=== PATIENT | male | born 1965 | race Caucasian/White ===

== ENCOUNTER 2017-11-18 15:50 | Observation (INO) | payer OTHER ==
[2017-11-18] MEDS ORDERED: methylPREDNISolone 125 MG* 2 ML VIAL IV ONE (17:27)
[2017-11-18] MEDS ORDERED: Aspirin 81 mg CHEW TAB* 81 MG TAB.CHEW PO ONE (17:27)
[2017-11-18] MEDS ORDERED: Nitroglycerin TAB 0.4 MG* 0.4 MG TAB SL ONE (17:27)
[2017-11-18] MEDS ORDERED: Albuterol/Ipratropium NEB.SOL* Albuterol 2.5 MG/Ipratropium 0.5 MG 3 ML INH ONE ×2 (17:27→18:16)
[2017-11-18 17:53] LABS: ABS Basophils 0 10^3/ul (0-0.2); ABS Eosinophils 1.1 10^3/ul (0-0.6); ABS Lymphocytes 1.9 10^3/ul (1.0-4.8); ABS Monocytes 0.5 10^3/ul (0-0.8); ABS Neutrophils 3.8 10^3/ul (1.5-7.7); ABS Nucleated RBC 0 10^3/ul; Eosinophil % 14.6 % (0-6); Hematocrit 41 % (42-52); Hemoglobin 14.1 g/dl (14.0-18.0); Lymphocyte % 25.6 % (25-47); Mean Corpuscular HGB Conc 35 g/dl (31-36); Mean Corpuscular Hemoglobin 34 pg (27-31); Mean Corpuscular Volume 100 fL (80-94); Mean Platelet Volume 8.4 um3 (7.4-10.4); Nucleated Red Blood Cells % 0.1; Platelet Count 192 10^3/ul (150-450); Red Blood Count 4.08 10^6/ul (4.0-5.4); Red Cell Distribution Width 14 % (10.5-15); White Blood Count 7.3 10^3/ul (3.5-10.8)
--- NOTE | 2017-11-18 18:05 | RAD ---
INDICATION: Intermittent chest pressure for a couple of days. Tingling in the arms. COMPARISON: December 02, 2015 TECHNIQUE: Dual energy PA and routine lateral views of the chest were obtained. REPORT: Clear lungs and pleural spaces. Negative for pneumothorax. The heart, pulmonary vasculature, and mediastinal contours are unremarkable. Unremarkable osseous structures and soft tissue contours. IMPRESSION: No evidence for acute intrathoracic disease.
[2017-11-18 18:11] LABS: EGFR Non-African American 80.3 (>60)
[2017-11-18] MEDS ORDERED: Metoprolol Tartrate IV* 1 MG/ML 5 ML VIAL IV ONE (18:59)
[2017-11-18] MEDS ORDERED: hydrALAZINE IV* 20 MG/ML VIAL IV SLOW PU ONE (19:17)
[2017-11-18] MEDS ORDERED: Acetaminophen TAB* 325 MG PO PRN (19:49)
[2017-11-18] MEDS ORDERED: hydrALAZINE IV* 20 MG/ML VIAL IV SLOW PU PRN ×2 (19:50→20:16)
[2017-11-18] MEDS ORDERED: LORazepam TAB(*) 1 MG PO SCH (20:00)
[2017-11-18] MEDS ORDERED: Azithromycin IV(*) 500 MG in NS 0.9% 250 ML* 250 ML IVPB SCH (20:00)
[2017-11-18] MEDS ORDERED: LORazepam TAB(*) 1 MG PO ONE (20:16)
[2017-11-18] MEDS ORDERED: amLODIPine TAB* 5 MG PO ONE (20:16)
[2017-11-18] MEDS: Mometasone/Formoter 200/5 MDI INH SCH (21:55)
[2017-11-19] MEDS: Albuterol/Ipratropium NEB.SOL* Albuterol 2.5 MG/Ipratropium 0.5 MG 3 ML INH SCH ×5 (00:32→14:56)
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
[2017-11-19 05:53] LABS: ABS Basophils 0 10^3/ul (0-0.2); ABS Eosinophils 0 10^3/ul (0-0.6); ABS Lymphocytes 0.5 10^3/ul (1.0-4.8); ABS Monocytes 0 10^3/ul (0-0.8); ABS Neutrophils 5.9 10^3/ul (1.5-7.7); ABS Nucleated RBC 0 10^3/ul; Eosinophil % 0 % (0-6); Hematocrit 43 % (42-52); Hemoglobin 14.8 g/dl (14.0-18.0); Lymphocyte % 8.1 % (25-47); Mean Corpuscular HGB Conc 34 g/dl (31-36); Mean Corpuscular Hemoglobin 35 pg (27-31); Mean Corpuscular Volume 101 fL (80-94); Mean Platelet Volume 8.5 um3 (7.4-10.4); Nucleated Red Blood Cells % 0; Platelet Count 198 10^3/ul (150-450); Red Blood Count 4.29 10^6/ul (4.0-5.4); Red Cell Distribution Width 14 % (10.5-15); White Blood Count 6.5 10^3/ul (3.5-10.8)
[2017-11-19] MEDS ORDERED: methylPREDNISolone SOD 40 MG* 1 ML VIAL IV SCH (06:00)
[2017-11-19 06:12] LABS: EGFR Non-African American 81.3 (>60)
[2017-11-19] MEDS: Mometasone/Formoter 200/5 MDI INH SCH (07:27)
--- NOTE | 2017-11-19 07:41 | ED ---
Neil Antoine Gabriel scribed for Marvin Rivero MD on 11/18/17 at 1850 . HPI Chest Pain - HPI Summary HPI Summary: This patient is a 51 year old M presenting to [facility] with a chief complaint of intermittent heavy sub sternal CP that began 3 days ago and radiates into his left scapula. He also c/o wheezing and numbness/tingling into the left hand and foot that began 3 weeks ago. He also has had a baseline cough for weeks. The patient has not seen a doctor in many years and is not on medication. The pain was relieved with nitro. - History of Current Complaint Chief Complaint: EDChestPainROMI Time Seen by Provider: 11/18/17 17:10 Hx Obtained From: Patient Onset/Duration: Still Present Timing: Constant Initial Severity: Mild Current Severity: Mild Pain Intensity: 4 Pain Scale Used: 0-10 Numeric Chest Pain Radiates: Yes Chest Pain Radiates To:: Back - Allergy/Home Medications Allergies/Adverse Reactions: Allergies Allergy/AdvReac Type Severity Reaction Status Date / Time Hay fever Allergy Unknown Uncoded 11/18/17 16:08 Reaction Details PMH/Surg Hx/FS Hx/Imm Hx Endocrine/Hematology History: Denies: Hx Diabetes Cardiovascular History: Reports: Hx Angina Denies: Hx Congestive Heart Failure, Hx Hypertension Respiratory History: Reports: Hx Chronic Obstructive Pulmonary Disease (COPD) Sensory History: Reports: Hx Contacts or Glasses - reading glasses Opthamlomology History: Reports: Hx Contacts or Glasses - reading glasses - Surgical History Surgery Procedure, Year, and Place: RT. KNEE MENISCAL TEAR, FACIAL BONE FX. RECON. Infectious Disease History: No Infectious Disease History: Denies: Traveled Outside the [place] in Last 30 Days - Social History Alcohol Use: Daily Substance Use Type: Reports: None Smoking Status (MU): Former Smoker Review of Systems Negative: Fever, Chills Negative: Erythema Negative: Sore Throat Positive: Chest Pain Positive: Cough, Other - wheeze . Negative: Shortness Of Breath Negative: Abdominal Pain, Vomiting, Nausea Negative: dysuria, hematuria Negative: Myalgia, Edema Negative: Rash Neurological: Negative - dizziness Positive: Numbness All Other Systems Reviewed And Are Negative: Yes Physical Exam - Summary Physical Exam Summary: Constitutional: Well-developed, Well-nourished, Alert. (-) Distressed Skin: Warm, Dry HENT: Normocephalic; Atraumatic Eyes: Conjunctiva normal Neck: Musculoskeletal ROM normal neck. (-) JVD, (-) Stridor, (-) Tracheal deviation Cardio: Rhythm regular, rate normal, Heart sounds normal; Intact distal pulses; The pedal pulses are 2+ and symmetric. Radial pulses are 2+ and symmetric. (-) Murmur Pulmonary/Chest wall: Effort normal. (-) Respiratory distress, (+) Wheezes, (-) Rales Abd: Soft, (-) Tenderness, (-) Distension, (-) Guarding, (-) Rebound Musculoskeletal: (-) Edema Lymph: (-) Cervical adenopathy Neuro: Alert, Oriented x3 Psych: Mood and affect Normal Triage Information Reviewed: Yes Vital Signs On Initial Exam: Initial Vitals Temp Pulse Resp BP Pulse Ox 98.7 F 67 20 179/105 100 11/18/17 16:04 11/18/17 16:04 11/18/17 16:04 11/18/17 16:04 11/18/17 16:04 Vital Signs Reviewed: Yes Diagnostics - Vital Signs Vital Signs Temp Pulse Resp BP Pulse Ox 11/18/17 16:04 98.7 F 67 20 179/105 100 - Laboratory Lab Results: Lab Results 11/18/17 11/18/17 11/18/17 Range/Units 17:37 17:37 17:37 WBC (3.5-10.8) 10^3/ul RBC (4.0-5.4) 10^6/ul Hgb (14.0-18.0) g/dl Hct (42-52) % MCV (80-94) fL MCH (27-31) pg MCHC (31-36) g/dl RDW (10.5-15) % Plt Count (150-450) 10^3/ul MPV (7.4-10.4) um3 Neut % (Auto) (38-83) % Lymph % (Auto) (25-47) % Spalding % (Auto) (0-7) % Eos % (Auto) (0-6) % Baso % (Auto) (0-2) % Absolute Neuts (auto) (1.5-7.7) 10^3/ul Absolute Lymphs (auto) (1.0-4.8) 10^3/ul Absolute Monos (auto) (0-0.8) 10^3/ul Absolute Eos (auto) (0-0.6) 10^3/ul Absolute Basos (auto) (0-0.2) 10^3/ul Absolute Nucleated RBC 10^3/ul Nucleated RBC % D-Dimer, Quantitative < 200 (Less Than 230) ng/mL Sodium 138 L (139-145) mmol/L Potassium 3.7 (3.5-5.0) mmol/L Chloride 104 (101-111) mmol/L Carbon Dioxide 25 (22-32) mmol/L Anion Gap 9 (2-11) mmol/L BUN 11 (6-24) mg/dL Creatinine 0.98 (0.67-1.17) mg/dL Est GFR ( Amer) 103.3 (>60) Est GFR (Non-Af Amer) 80.3 (>60) BUN/Creatinine Ratio 11.2 (8-20) Glucose 98 (70-100) mg/dL Lactic Acid 0.9 (0.5-2.0) mmol/L Calcium 9.7 (8.6-10.3) mg/dL Total Bilirubin 0.70 (0.2-1.0) mg/dL AST 26 (13-39) U/L ALT 28 (7-52) U/L Alkaline Phosphatase 56 (34-104) U/L Troponin I 0.00 (<0.04) ng/mL Total Protein 7.5 (6.4-8.9) g/dL Albumin 4.4 (3.2-5.2) g/dL Globulin 3.1 (2-4) g/dL Albumin/Globulin Ratio 1.4 (1-3) /04/28 Range/Units 17:40 WBC 7.3 (3.5-10.8) 10^3/ul RBC 4.08 (4.0-5.4) 10^6/ul Hgb 14.1 (14.0-18.0) g/dl Hct 41 L (42-52) % MCV 100 H (80-94) fL MCH 34 H (27-31) pg MCHC 35 (31-36) g/dl RDW 14 (10.5-15) % Plt Count 192 (150-450) 10^3/ul MPV 8.4 (7.4-10.4) um3 Neut % (Auto) 52.1 (38-83) % Lymph % (Auto) 25.6 (25-47) % Spalding % (Auto) 7.1 H (0-7) % Eos % (Auto) 14.6 H (0-6) % Baso % (Auto) 0.6 (0-2) % Absolute Neuts (auto) 3.8 (1.5-7.7) 10^3/ul Absolute Lymphs (auto) 1.9 (1.0-4.8) 10^3/ul Absolute Monos (auto) 0.5 (0-0.8) 10^3/ul Absolute Eos (auto) 1.1 H (0-0.6) 10^3/ul Absolute Basos (auto) 0 (0-0.2) 10^3/ul Absolute Nucleated RBC 0 10^3/ul Nucleated RBC % 0.1 D-Dimer, Quantitative (Less Than 230) ng/mL Sodium (139-145) mmol/L Potassium (3.5-5.0) mmol/L Chloride (101-111) mmol/L Carbon Dioxide (22-32) mmol/L Anion Gap (2-11) mmol/L BUN (6-24) mg/dL Creatinine (0.67-1.17) mg/dL Est GFR ( Amer) (>60) Est GFR (Non-Af Amer) (>60) BUN/Creatinine Ratio (8-20) Glucose (70-100) mg/dL Lactic Acid (0.5-2.0) mmol/L Calcium (8.6-10.3) mg/dL Total Bilirubin (0.2-1.0) mg/dL AST (13-39) U/L ALT (7-52) U/L Alkaline Phosphatase (34-104) U/L Troponin I (<0.04) ng/mL Total Protein (6.4-8.9) g/dL Albumin (3.2-5.2) g/dL Globulin (2-4) g/dL Albumin/Globulin Ratio (1-3) Result Diagrams: 11/18/17 17:40 11/18/17 17:37 Lab Statement: Any lab studies that have been ordered have been reviewed, and results considered in the medical decision making process. Chest Pain Course/Dx - Course Assessment/Plan: This patient is a 51 year old M presenting to [facility] with a chief complaint of intermittent heavy sub sternal CP that began 3 days ago and radiates into his left scapula. He also c/o wheezing and numbness/tingling into the left hand and foot that began 3 weeks ago. He also has had a baseline cough for weeks. The patient has not seen a doctor in many years and is not on medication. The pain was relieved with nitro. Patient has fmhx of CAD and is hypertensive in the ED. He will be admitted to r/o acute coronary syndrome and COPD. Dx unspecified chest pain - Diagnoses Provider Diagnoses: Chest pain, unspecified - Provider Notifications Discussed Care Of Patient With: Selena Murillo Time Discussed With Above Provider: 18:52 Instructed by Provider To: Admit As Inpatient Discharge - Sign-Out/Discharge Documenting (check all that apply): Discharge/Admit/Transfer - Discharge Plan Condition: Fair Disposition: ADMITTED TO [facility] Referrals: Cecil Vital MD [Primary Care Provider] - The documentation as recorded by the Neil cao Gabriel accurately reflects the service I personally performed and the decisions made by , Marvin Rivero MD.
[2017-11-19] MEDS ORDERED: Aspirin 81 mg CHEW TAB* 81 MG TAB.CHEW PO SCH (09:00)
[2017-11-19] MEDS ORDERED: Folic Acid TAB* 1 MG PO SCH (09:00)
[2017-11-19] MEDS ORDERED: Thiamine TAB* 100 MG TAB PO SCH (09:00)
[2017-11-19] MEDS ORDERED: Multivitamins/Minerals TAB PO SCH (09:00)
[2017-11-19] MEDS ORDERED: amLODIPine TAB* 5 MG PO SCH (09:00)
[2017-11-19] MEDS ORDERED: Regadenoson* 0.4 MG/5 ML SYRINGE ONE (11:00)
[2017-11-19] MEDS ORDERED: Aminophylline IV* 25 MG/ML 10 ML VIAL ONE (11:12)
--- NOTE | 2017-11-19 14:17 | RAD ---
Edited for charges. Indication: Chest pain. Myocardial perfusion scan was performed utilizing 1 day protocol. Rest myocardial perfusion was performed after intravenous injection of 10.99 mCi of technetium 99 and tetrofosmin. Treadmill stress study was performed and the maximum heart rate achieved was 112% of the maximum predicted value. The left ventricle appears normal in size. There is homogeneous distribution of the radiotracer throughout the left ventricle. There is no significant fixed or reversible perfusion defect noted. Ejection fraction at stress is 83%. Evaluation of wall motion demonstrates no evidence of focal wall motion abnormalities. IMPRESSION: No fixed or reversible perfusion defects are noted. Normal ejection fraction. ASSESSMENT: Low risk Based on imaging criteria from ACC/AHA 2002 Guideline Update for the Management of Patients With Chronic Stable Angina Table 23. Noninvasive Risk Stratification. MTDD
[2017-11-19 16:01] VITALS: BP 121/78
--- NOTE | 2017-11-20 12:04 | DS ---
CC: Dr. Vital; Dr. Ann * DISCHARGE SUMMARY: DATE OF ADMISSION: 11/18/17 DATE OF DISCHARGE: 11/19/17 PRIMARY CARE PROVIDER: Dr. Vital. DISCHARGE DIAGNOSES: 1. Asthma exacerbation. 2. Chest pain with low probability cardiac stress test documented on 11/19/17. SECONDARY DIAGNOSES: 1. Hypertension. 2. Hyperlipidemia. 3. History of COPD. 4. History of tobacco abuse. 5. History of alcohol abuse. MEDICATIONS AT DISCHARGE: Include, 1. Albuterol inhaler 2 puffs every 4 hours p.r.n. 2. Claritin 10 mg daily. 3. Advair 250/50 one inhalation b.i.d. 4. Norvasc 5 mg daily. 5. Prednisone 50 mg daily for five days in total then stop. LABORATORY DATA: Studies performed during the hospital stay include: On , white blood cell count of 6.7, hemoglobin of 14.8, hematocrit of 43, and platelets of 188. D-dimer below 200. Sodium was 137, potassium 3.9, chloride 104, carbon dioxide 23, BUN 14, creatinine 0.97. His troponin was 0 throughout his hospital stay. Triglycerides of 52, cholesterol total of 236, LDL 152 and HDL 73. Portable chest x-ray on admission, impression: "No evidence of acute intrathoracic disease." The patient's nuclear medicine, cardiac stress tests documented on 11/19/17 showed low risk. There was no fixed or reversible perfusion defect noted. Normal ejection fraction with stress at 83%. Please note that on treadmill at the end of his exercise on treadmill, patient was having significant wheezes. HOSPITALIZATION COURSE: Gui Davis is a 51-year-old male with history of COPD and asthma. The patient stated for the last 11 years ever since he started smoking, he had been having exercise-induced wheezing. He stopped his Advair due to the cost of the medication. He had been using albuterol on a p.r.n. basis and he uses it several times a day. 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 The patient presented with wheezing and chest pain. For details of the presentation, please see history and physical at admission. Shortly, the patient was placed on overnight observation, treated for COPD exacerbation with Solu-Medrol and nebulizer treatments. By the time of discharge, he still continues to have wheezes bilaterally on exam but he was definitely more comfortable. His cardiac stress test showed increase in wheezes post treadmill but nuclear portion of the stress test showed no evidence of ischemia. Unfortunately despite trying to call patient's insurance to figure out which long acting beta agonist and steroid combination inhaler the patient's insurance covers, it appears that patient has a $1000 deductible and he will have to pay full simmons for his long acting inhalers until he meets the deductible. At this point, I did prescribe patient Advair at discharge. It is possible that patient's primary care provider may have some samples to give for the patient. The patient is recommended to follow up with Dr. Ann, the rail car loader for further recommendations and investigations regarding his what appears to be exercise induced asthma. At discharge, the patient is recommended to follow up with Dr. Vital, his primary care provider in 4 to 7 days. I also gave patient Dr. Ann's office phone number but I believe he may need a referral from Dr. Vital before he can see a rail car loader. PHYSICAL EXAMINATION: At the time of discharge, blood pressure 134/78, heart rate of 105 and regular, respiratory rate 16, oxygen saturation 96% on room air , temperature 97.6. General: This is a pleasant 51-year-old male who is in no acute distress. Alert, awake, and oriented x3. HEENT: Head is atraumatic, normocephalic. Eyes: Pupils are equal, reactive to light and accommodation. Oropharynx is clear. Mucosa moist. Neck: Supple. No JVD. No bruits bilaterally. Cardiovascular: Regular rate and rhythm. No murmur. Respiratory : High pitched wheezes bilaterally in bilateral mid lungs on evaluation. Abdomen: Soft, nontender. Bowel sounds are present in all 4 quadrants. Extremities: There is no edema. Pulses are +2 bilaterally. There is no clubbing or cyanosis. Neuro Evaluation: Speech clear. Cranial nerves II through XII grossly intact. Motor strength is 5/5 bilaterally. At discharge, the patient recommended to adhere to low-cholesterol diet. Please note that this is a short summary of the patient's hospitalization. Please refer to further medical records for details. [id number]/CPS #: [id number] [facility]
== END 2017-11-19 18:00 | disposition home or self-care (01) ==
LOC: ED 15:50 → MEDTELE 18:27
PROVIDERS: ADMIT Internal Medicine; ATTEND Internal Medicine
DX: J45.901 Unspecified asthma with (acute) exacerbation (principal); R07.9 Chest pain, unspecified; I10 Essential (primary) hypertension; E78.5 Hyperlipidemia, unspecified; Z87.891 Personal history of nicotine dependence; F10.21 Alcohol dependence, in remission; Z87.09 Personal history of other diseases of the respiratory system
CPT/HCPCS: 36415; 71046; 78452; 80048; 80053; 80061; 80320; 83605; 83735; 84484; 85025; 85379; 93005; 93017; 94640; 99284; A9270-GY; A9502; G0378; G0480; J0280; J0360; J0456; J2785; J2920; J2930

== ENCOUNTER 2019-08-21 09:16 | Emergency (ER) | payer OTHER ==
[2019-08-21] MEDS ORDERED: Labetalol IV* 5 MG/ML 20 ML VIAL IV PUSH ONE (10:36)
--- NOTE | 2019-08-21 10:37 | ED ---
Neurological HPI - HPI Summary HPI Summary: This pt is a 53 y/o male presenting to [facility] c/o left arm tingling x1 month. Pt reports tingling starts at the tip of his left fingers and radiates up to his upper left arm. Additionally reports left sided neck stiffness. Denies neck pain. Denies slurred speech, difficulty concentrating, unsteady gait, weakness in legs. Denies hx of strokes or TIAs. Pt reports he has been having a productive cough as well. He states he has chest pain mostly when he coughs. Denies runny nose or fevers. Pt reports his PCP placed him on 5 mg of Amlodipine and has been taking this new medication for 3 weeks now. PMHx: HTN, COPD. Denies tobacco and drug use. Pt admits to drinking alcohol, 6 pack every day, and states he gets "buzzed" but not drunk. - History of Current Complaint Chief Complaint: EDGeneral Stated Complaint: LEFT ARM NUMBNESS/CONGESTED PER PT Time Seen by Provider: 08/21/19 10:29 Hx Obtained From: Patient Onset/Duration: Started weeks ago, Still Present Timing: Constant Current Severity: Moderate Neurological Deficit Location: LUE Pain Intensity: 0 Pain Scale Used: 0-10 Numeric Character: Numbness/Tingling Aggravating: Nothing Alleviating: Nothing Associated Signs and Symptoms: Positive: Chest Pain. Negative: Unsteady Gait, Weakness, Impaired Speech, Fever - Additional Pertinent History Primary Care Physician: HALIMA - Allergy/Home Medications Allergies/Adverse Reactions: Allergies Allergy/AdvReac Type Severity Reaction Status Date / Time Hay fever Allergy Unknown Uncoded 11/18/17 16:08 Reaction Details Home Medications: Home Medications Albuterol HFA INHALER* [Ventolin HFA Inhaler*] 2 puff INH Q4H PRN 08/21/19 [ History Confirmed 08/21/19] Fluticasone Propion/Salmeterol [Wixela 250-50 Inhub] 1 each INH BID 08/21/19 [ History Confirmed 08/21/19] PMH/Surg Hx/FS Hx/Imm Hx Endocrine/Hematology History: Denies: Hx Diabetes Cardiovascular History: Reports: Hx Angina, Hx Hypercholesterolemia Denies: Hx Congestive Heart Failure, Hx Coronary Artery Disease, Hx Hypertension, Hx Myocardial Infarction Respiratory History: Reports: Hx Chronic Obstructive Pulmonary Disease (COPD) Denies: Hx Asthma Sensory History: Reports: Hx Contacts or Glasses - reading glasses Denies: Hx Hearing Aid Opthamlomology History: Reports: Hx Contacts or Glasses - reading glasses - Surgical History Surgery Procedure, Year, and Place: RT. KNEE MENISCAL TEAR, FACIAL BONE FX. RECON. Hx Anesthesia Reactions: No Infectious Disease History: No Infectious Disease History: Denies: Traveled Outside the [place] in Last 30 Days - Family History Known Family History: Positive: Cardiac Disease - grandmother with CAD Family History: Father with cirrhosis of the liver secondary to alcoholism. Sister with lung CA. - Social History Alcohol Use: Daily Alcohol Amount: 6 pack Substance Use Type: Reports: None Smoking Status (MU): Former Smoker Review of Systems Negative: Fever Negative: Nasal Discharge Positive: Chest Pain Positive: Cough Musculoskeletal: Other - POSITIVE: left neck stiffness Negative: Other - NEGATIVE: neck pain Neurological/Mental Status: Other - NEGATIVE: difficulty concentrating Positive: Paresthesia. Negative: Weakness, Slurred Speech All Other Systems Reviewed And Are Negative: Yes Physical Exam - Summary Physical Exam Summary: VITAL SIGNS: Reviewed. GENERAL: Patient is a well-developed and nourished male who is lying comfortable in the stretcher. Patient is not in any acute respiratory distress. HEAD AND FACE: No signs of trauma. No ecchymosis, hematomas or skull depressions. No sinus tenderness. EYES: PERRLA, EOMI x 2, No injected conjunctiva, no nystagmus. No photophobia. EARS: Hearing grossly intact. Ear canals and tympanic membranes are within normal limits. MOUTH: Oropharynx within normal limits. NECK: Supple, trachea is midline, no adenopathy, no JVD, no carotid bruit, no c- spine tenderness, neck with full ROM. No meningeal signs, no Kernig's or brudzinskis signs. CHEST: Symmetric, no tenderness at palpation. LUNGS: Clear to auscultation bilaterally. No wheezing or crackles. CVS: Regular rate and rhythm, S1 and S2 present, no murmurs or gallops appreciated. ABDOMEN: Soft, non-tender. No signs of distention. No rebound, no guarding, and no masses palpated. Bowel sounds are normal. EXTREMITIES: FROM in all major joints, no edema, no cyanosis or clubbing. NEURO: Alert and oriented x 3. Decreased sensation in left upper extremity. Speech is normal and follows commands. SKIN: Dry and warm. GCS: 15 Triage Information Reviewed: Yes Vital Signs On Initial Exam: Initial Vitals Temp Pulse Resp BP Pulse Ox 98.3 F 95 18 192/114 97 08/21/19 09:18 08/21/19 09:18 08/21/19 09:18 08/21/19 09:18 08/21/19 09:18 Vital Signs Reviewed: Yes Procedures - Sedation Patient Received Moderate/Deep Sedation with Procedure: No Diagnostics - Vital Signs Vital Signs Temp Pulse Resp BP Pulse Ox 08/21/19 10:25 75 99 08/21/19 09:18 98.3 F 95 18 192/114 97 - Laboratory Result Diagrams: 08/21/19 10:45 08/21/19 10:45 Lab Statement: Any lab studies that have been ordered have been reviewed, and results considered in the medical decision making process. - Radiology Chest XR Radiology Interpretation Completed By: Radiologist Summary of Radiographic Findings: IMPRESSION: No radiographic evidence of acute cardiopulmonary disease. Dr. Morin has reviewed this report. - CT Brain CT CT Interpretation Completed By: Radiologist Summary of CT Findings: IMPRESSION: No evidence of intracranial mass or hemorrhage is noted. Dr. Morin has reviewed this report. Cervical spine CT CT Interpretation Completed By: Radiologist Summary of CT Findings: IMPRESSION: Multilevel degenerative disc disease is noted. No fracture is identified. Degenerative disc disease at C5-C6 and C6-C7 with dorsal osteophyte formation and bilateral uncovertebral joint hypertrophy. Left facet arthropathy at C2-C3 is noted. Right facet arthropathy is noted at C3 -C4. Left facet arthropathy is noted at C4-C5. Dr. Morin has reviewed this report. - EKG 10:27 Cardiac Rate: NL - at 86 bpm EKG Rhythm: Sinus Rhythm Summary of EKG Findings: EKG at 1027 shows normal sinus rhythm at a rate of [address] elevations. Normal axis. This EKG was interpreted and reviewed by ED physician. Re-Evaluation - Re-Evaluation First Eval Re-Evaluation Time: 14:18 Comment: Reviewed results with patient. He will be discharged home with follow up from his PCP. Course/Dx - Course Assessment/Plan: This pt is a 53 y/o male presenting to [facility] c/o left arm tingling x1 month. Pt reports tingling starts at the tip of his left fingers and radiates up to his upper left arm. Additionally reports left sided neck stiffness. Denies neck pain. Denies slurred speech, difficulty concentrating, unsteady gait, weakness in legs. Denies hx of strokes or TIAs. Pt reports he has been having a productive cough as well. He states he has chest pain mostly when he coughs. Denies runny nose or fevers. Pt reports his PCP placed him on 5 mg of Amlodipine and has been taking this new medication for 3 weeks now. PMHx: HTN, COPD. Denies tobacco and drug use. Pt admits to drinking alcohol, 6 pack every day, and states he gets "buzzed" but not drunk. In the ED course the patient was placed in a cardiac care unit nurse, IV access was obtained, IV fluids started. Patient was significantly hypertensive therefore he was given labetalol 20 mg IV and afterwards the blood pressure went down to 146/94. EKG shows sinus rhythm without any ST elevations. Blood test w/o a significant abnormality except for slight anemia with a hemoglobin of 13.8 and hematocrit 40 , glucose 115. The blood pressure has increased again and is 153/101. Therefore the patient was given another dose of 5 mg of Labetalol. C-spine CT IMPRESSION: Multilevel degenerative disc disease is noted. No fracture is identified. Degenerative disc disease at C5-C6 and C6-C7 with dorsal osteophyte formation and bilateral uncovertebral joint hypertrophy. Left facet arthropathy at C2-C3 is noted. Right facet arthropathy is noted at C3-C4. Left facet arthropathy is noted at C4-C5. Head CT IMPRESSION: No evidence of intracranial mass or hemorrhage is noted. CXR IMPRESSION: No radiographic evidence of acute cardiopulmonary disease. Tingling in the left upper extremity is likely secondary to paresthesias. Head CT and the C-spine CT are both negative. Two troponins 4 hours apart are also 0.00. Hypertension is controlled. Patient reports that all symptoms have resolved. Patient's HEART score is: 2 therefore, low suspicion for CAD. Patient is not hypoxic or tachycardic. Wells criteria is 0, therefore, no suspicion for PE. Patient has no abdominal bruit thus no suspicion for AAA. Patients pain does not radiate to the back and pain has resolved thus low suspicion for aortic dissection. I discussed all the findings and test results with the patient. Patient was instructed to return to the emergency room immediately if any of the symptoms return or worsen. Patient understands and agrees. Plan of care was discussed with the patient and patient understands and agrees. All questions were answered at patient satisfaction. There were no further complaints or concerns. PE before discharge: CVS: S1 and S2 present. No murmurs appreciated. Abdominal exam before discharge: Soft, non-tender. No signs of distention. No rebound no guarding, and no masses palpated. Bowel sounds are normal. Patient is alert and oriented x 3. Patient is hemodynamically stable. - Diagnoses Provider Diagnoses: Arm paresthesia, left, Atypical chest pain, Uncontrolled hypertension Discharge ED - Sign-Out/Discharge Documenting (check all that apply): Patient Departure - Discharge home - Discharge Plan Condition: Stable Disposition: HOME Patient Education Materials: Chest Pain (ED), Paresthesia (ED), Hypertension ( ED) Referrals: Cecil Vital MD [Primary Care Provider] - Additional Instructions: FOLLOW UP WITH YOUR PRIMARY CARE PROVIDER IN 2-3 DAYS. RETURN TO THE ED FOR ANY NEW OR WORSENING SYMPTOMS. - Billing Disposition and Condition Condition: STABLE Disposition: Home - Attestation Statements Document Initiated by Isidoro: Yes Documenting Scribe: Mara Goldman Provider For Whom Isidoro is Documenting (Include Credential): Devin Morin MD Scribe Attestation: Mara Anotine, scribed for Devin Morin MD on 08/23/19 at 0218. Scribe Documentation Reviewed: Yes Provider Attestation: The documentation as recorded by the Mara cao accurately reflects the service I personally performed and the decisions made by , Devin Morin MD Status of Scribe Document: Viewed
[2019-08-21 11:06] LABS: ABS Eosinophils 0.5 10^3/ul (0-0.6); ABS Lymphocytes 1.2 10^3/ul (1.0-4.8); ABS Monocytes 0.4 10^3/ul (0-0.8); ABS Neutrophils 3.3 10^3/ul (1.5-7.7); Eosinophil % 8.5 %; Hematocrit 40 % (42-52); Hemoglobin 13.8 g/dL (14.0-18.0); Lymphocyte % 22.3 %; Mean Corpuscular HGB Conc 35 g/dL (31-36); Mean Corpuscular Hemoglobin 34 pg (27-31); Mean Corpuscular Volume 98 fL (80-94); Mean Platelet Volume 8.7 fL (7.4-10.4); Nucleated Red Blood Cells % 0.1; Platelet Count 194 10^3/uL (150-450); Red Blood Count 4.03 10^6 /uL (4.18-5.48); Red Cell Distribution Width 15 % (10-15); White Blood Count 5.4 10^3/uL (3.5-10.8)
[2019-08-21 11:15] LABS: Activated Partial Thrombo Time 34.7 seconds (26.0-38.0); INR 0.97 (0.82-1.09)
[2019-08-21 11:30] LABS: Albumin 4.6 g/dL (3.2-5.2); Albumin/Globulin Ratio 1.5 (1-3); BUN/Creatinine Ratio 14.7 (8-20); Calcium 9.5 mg/dL (8.6-10.3); EGFR Non-African American 82.6 (>60); Magnesium 2.2 mg/dL (1.9-2.7); Potassium 3.9 mmol/L (3.5-5.0); Total Bilirubin 0.4 mg/dL (0.2-1.0); Total Protein 7.6 g/dL (6.4-8.9)
[2019-08-21 11:33] LABS: CKMB ng/mL 5.4 ng/mL (0.6-6.3)
[2019-08-21 11:55] LABS: TSH (Thyroid Stimulating Horm) 2.2 mcIU/mL (0.34-5.60)
[2019-08-21 12:58] LABS: Urine Appearance Clear; Urine Bilirubin Negative (Negative); Urine Blood Negative (Negative); Urine Color Straw; Urine Glucose Negative (Negative); Urine Ketones Negative (Negative); Urine Nitrite Negative (Negative); Urine Protein Negative (Negative); Urine Urobilinogen Negative (Negative)
[2019-08-21] MEDS ORDERED: amLODIPine TAB* 5 MG PO ONE (14:16)
[2019-08-21 14:22] VITALS: BP 156/100
== END 2019-08-21 14:22 | disposition home or self-care (01) ==
LOC: ED 09:16
DX: R20.2 Paresthesia of skin (principal); R07.89 Other chest pain; I10 Essential (primary) hypertension; J44.9 Chronic obstructive pulmonary disease, unspecified; E78.00 Pure hypercholesterolemia, unspecified; Z87.891 Personal history of nicotine dependence; Z79.899 Other long term (current) drug therapy
CPT/HCPCS: 36415; 70450; 71046; 72125; 80053; 81003; 82550; 82553; 82607; 83605; 83735; 83880; 84443; 84484; 85025; 85610; 85730; 93005; 96374; 99283; A9270-GY